=== PATIENT | male | born 1985 | race Caucasian/White ===

== ENCOUNTER 2017-03-22 06:53 | Day surgery (SDC) | payer OTHER ==
[2017-03-21 10:41] VITALS: BMI 21.2
[2017-03-22] MEDS ORDERED: CEFAZOLIN/Water 2 GM/20 ML SYRINGE ONE (07:13)
[2017-03-22 07:40] LABS: #Basophils 0.1 thou/uL (0.0-0.2); #Lymphocytes 1.6 thou/uL (1.20-3.40); #Monocytes 0.4 thou/uL (0.11-0.59); %Basophils 1.2 % (0.0-1.0); %Eosinophils 0.7 % (0.0-10.0); %Lymphocytes 31.5 % (21.0-51.0); %Monocytes 7.3 % (0.0-10.0); %Neutrophils 59.4 % (42.0-75.0); Hemoglobin 14.7 g/dL (14.0-18.0); Mean Corpuscular HGB CONC 32.9 g/dL (32.0-36.0); Mean Corpuscular Hemoglobin 29.3 pg (27.0-31.0); Mean Corpuscular Volume 89.1 fl (80.0-94.0); Mean Platelet Volume 7.3 fL (7.4-10.4); Platelet Count 222 thou/uL (130-400); RBC Distribution Width 11.8 % (11.5-14.5); Red Blood Cell (RBC) Count 5.01 mill/uL (4.70-6.10); White Blood Cell (WBC) Count 5.1 thou/uL (4.8-10.8)
[2017-03-22 08:03] LABS: Anion Gap 9 mmol/L (10-20); BUN (Urea Nitrogen) 17 mg/dL (8.9-20.6); Calc. Creatinine Clearance 102 mL/min (70-130); Calcium 9.9 mg/dL (7.8-10.44); Carbon Dioxide 30 mmol/L (22-29); Chloride 105 mmol/L (98-107); Estimated GFR-MDRD 75; Glucose 89 mg/dL (70-105); Potassium 3.8 mmol/L (3.5-5.1); Sodium 140 mmol/L (136-145)
[2017-03-22] MEDS ORDERED: Midazolam HCl 2 mg/2 ml Vial ONE (08:47)
[2017-03-22] MEDS ORDERED: Fentanyl 100 MCG/2 ML VIAL ONE ×3 (08:47→12:29)
[2017-03-22] MEDS ORDERED: Thrombin 5000 UNITS/5 ML VIAL ONE (09:03)
[2017-03-22] MEDS ORDERED: Sodium Chloride 0.9% 10 ML ONE (09:04)
[2017-03-22] MEDS ORDERED: Clindamycin/D5W 600 mg/50 ml Premix Bag ONE (09:12)
[2017-03-22] MEDS ORDERED: Fentanyl 250 MCG/5 ML VIAL ONE (10:26)
--- NOTE | 2017-03-22 11:42 | OP ---
DATE OF PROCEDURE: 03/22/2017 SURGEON: Gume Griffith M.D. CUSTODIAN MANAGER: Radhames Dumont PROCEDURES PERFORMED: Left L4-L5 and left L5-S1 laminectomy, facetectomy, and foraminotomy, interbod y arthrodesis, intravertebral biomechanical device, local morselized autograft, demineralized bone ma trix, posterior lateral arthrodesis and pedicle screw instrumentation L4 through S1. PROCEDURE IN DETAIL: The patient was brought into the operating room, intubated. He was rolled in t he prone position on gel-filled chest rolls. Incision made exposing L4 through S1 and our level was confirmed by x-ray. We performed left L4-L5 and left L5-S1 laminectomy, facetectomy and foraminotomi es, completely decompressing the nerve roots at these levels. The discs themselves were incised and debrided and completely removed. The bony endplates were decorticated for the purpose of arthrodesis and appropriately sized intravertebral biomechanical PEEK device was brought into the field, filled with demineralized bone matrix and local morselized autograft, and tapped into place securely at L4-L 5 and L5-S1. Next, pedicle screws were placed at left L4, left L5 and left S1 using lateral fluorosc opic guidance. A gillian was secured between the screws, connected by nuts which were final tightened. The wound was then extensively irrigated, immaculate hemostasis was secured. A combination of demine ralized bone matrix and local morselized autograft was laid over the right laminar and posterolateral surfaces for the purpose of arthrodesis. Vancomycin powder was applied and the wound was closed in anatomic layers.
[2017-03-22] MEDS ORDERED: Lidocaine 1% PF 5 ML VIAL ONE (15:19)
[2017-03-22] MEDS ORDERED: Dexamethasone 20 MG/5 ML VIAL ONE (15:19)
[2017-03-22] MEDS ORDERED: Propofol 200 MG/20 ML VIAL ONE (15:19)
[2017-03-22] MEDS ORDERED: Glycopyrrolate 0.2 MG/ML 5 ML SYRINGE ONE (15:19)
[2017-03-22] MEDS ORDERED: Ondansetron HCl/PF 4 MG/2 ML Vial ONE (15:19)
== END 2017-03-22 13:36 | disposition home or self-care (01) ==
LOC: SDC 06:53
PROVIDERS: ATTEND Neurological Surgery
PROC: 0SG30AJ Fusion of Lumbosacral Joint with Interbody Fusion Device, Posterior Approach, Anterior Column, Open Approach (ICD-10-PCS; principal; 2017-03-22)
DX: M54.16 Radiculopathy, lumbar region (principal)
CPT/HCPCS: 36415; 76001; 80048; 85025; 93005; 93010; 96374; A4216; C1713; C1768; J1100; J1642; J2001; J2250; J2405; J2704; J3010; J3370; J3490

== ENCOUNTER 2017-03-30 15:32 | Outpatient (CLI) | payer OTHER ==
--- NOTE | 2017-03-30 16:12 | RAD ---
LUMBAR SPINE TWO VIEWS: 03/30/17 HISTORY: 31-year-old male with history of lumbar radicular pain. FINDINGS/IMPRESSION: Postoperative left pedicle screws are noted at L4, L5 and S1 with intradiscal prostheses. The intradi scal prosthesis at L5-S1 is to the left of midline as seen on the AP view. POS: C
== END 2017-03-30 15:33 | disposition home or self-care (01) ==
LOC: TBSIIMAG 15:32
PROVIDERS: ATTEND Physician Assistant
DX: M54.16 Radiculopathy, lumbar region (principal); Z98.890 Other specified postprocedural states
CPT/HCPCS: 72100

== ENCOUNTER 2017-04-26 13:32 | Outpatient (CLI) | payer OTHER ==
--- NOTE | 2017-04-26 15:14 | RAD ---
LUMBAR SPINE 2 VIEWS: HISTORY: Lumbar pain radiating to the left leg. FINDINGS: Comparison is made with the left flank. FINDINGS: Comparison is made with the exam of 03/30/17. Postop changes of left-sided posterior spinal fusion changes are again seen with pedicle screws at L4 -L5-S1 levels in good position and alignment. Intradiskal prosthesis at L4-5 and L5-S1 levels in jackson ce. The intradiskal prosthesis of L5-S1 is to the left of midline on the AP view without change from the comparison study. No fracture, subluxation, or bony destruction is seen. IMPRESSION: Stable exam. POS: MARY
== END 2017-04-26 13:33 | disposition home or self-care (01) ==
LOC: TBSIIMAG 13:32
PROVIDERS: ATTEND Neurological Surgery
DX: M51.36 Other intervertebral disc degeneration, lumbar region (principal)
CPT/HCPCS: 72100

== ENCOUNTER 2017-07-18 14:49 | Outpatient (CLI) | payer BC, OTHER ==
--- NOTE | 2017-07-18 16:38 | RAD ---
2 VIEWS LUMBAR SPINE: Date: 07/18/17 COMPARISON: 04/26/17. HISTORY: Postoperative patient. Previous lumbar fusion. FINDINGS: Unilateral left-sided transpedicular screws at L4, L5, and S1. No perihardware lucency. Stable alignm ent. Stable disc prosthesis at L4-5 and L5-S1. Vertebral body height is maintained. No fracture. IMPRESSION: Stable lumbar fusion. POS: OFF
== END 2017-07-18 14:50 | disposition home or self-care (01) ==
LOC: TBSIIMAG 14:49
PROVIDERS: ATTEND Neurological Surgery
DX: M54.5 Low back pain (principal); Z98.1 Arthrodesis status
CPT/HCPCS: 72100